=== PATIENT | female | born 1985 | race Caucasian/White ===

== ENCOUNTER 2018-01-05 08:49 | Emergency (ER) | payer OTHER ==
[2018-01-05 08:57] VITALS: BP 147/69
--- NOTE | 2018-01-05 09:32 | UC ---
UC General HPI - HPI Summary HPI Summary: This pt is a 32 y/o female presenting to [facility] c/o sore throat for the past 4 days. Pt additionally reports fatigue, headache, and white patches on the back of her throat. She has taken Advil with some relief. She states her sore throat has become better . Denies difficulty swallowing. Pt also notes decreased appetite, nausea, and left ear feeling clogged up. Denies vomiting, diarrhea, fever, abd pain. No hx of mono. Denies sick contacts. 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 Allergic to amoxicillin and penicillin. Denies possibility of . Patients medication reviewed this visit. - History of Current Complaint Chief Complaint: UCRespiratory Stated Complaint: SORE THROAT Time Seen by Provider: 01/05/18 09:18 Hx Obtained From: Patient Hx Last Menstrual Period: 3-4 wks ago Onset/Duration: Lasting Days, Still Present Timing: Constant Onset Severity: Moderate Current Severity: Mild Pain Intensity: 2 Pain Location at: throat Character: sore Aggravating: nothing Alleviating: Advil Associated Signs & Symptoms: Positive: Headache, Nausea, Other - POS: sore throat, decreased appetite, fatigue, left ear feeling clogged up. Negative: Abdominal Pain, Cough, Diarrhea, Fever, Vomiting - Allergy/Home Medications Allergies/Adverse Reactions: Allergies Allergy/AdvReac Type Severity Reaction Status Date / Time amoxicillin Allergy Hives Verified 01/05/18 08:58 Penicillins Allergy Hives Verified 01/05/18 08:58 PMH/Surg Hx/FS Hx/Imm Hx Previously Healthy: Yes Endocrine History: Thyroid Disease - Hypothyroid Other Cardiovascular History: DENIES: HTN - Surgical History Surgical History: Yes Surgery Procedure, Year, and Place: biopsy vulva x 2 (benign); wisdom teeth - Family History Known Family History: Positive: Respiratory Disease - Father: sleep apnea Negative: Hypertension, Diabetes Family History: Maternal grandmother: breast cancer - Social History 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 [employer] Alcohol Use: Occasionally Substance Use Type: None Smoking Status (MU): Never Smoked Tobacco - Immunization History Most Recent Tetanus Shot: 3 yrs ago Review of Systems Constitutional: Fatigue, Other - NEG: fever, chills Skin: Negative Eyes: Negative ENT: Sore Throat, Other - POS: left ear feeling clogged up Respiratory: Negative Cardiovascular: Negative Gastrointestinal: Nausea, Other - NEG: vomiting, diarrhea, abd pain Genitourinary: Negative Motor: Negative Neurovascular: Negative Musculoskeletal: Negative Neurological: Headache Psychological: Negative All Other Systems Reviewed And Are Negative: Yes Physical Exam - Summary Physical Exam Summary: Vital Signs Reviewed: Yes A+Ox3, no distress Eyes: Conjunctiva Clear, DEVANG. EOM intact and full ENT: Hearing grossly normal left TM serous fluid, no erythema, no buldge, mmoist, uvula midline, left tonsil with small ulcerative lesion, scant exudate. no erythema, uvula midline symmetric Neck: Positive: Supple Respiratory: Positive: No respiratory distress, No accessory muscle use + CTA throughout no w/r Cardiovascular: RRR nl s1, s2 no m/r CBT <2 sec abd soft + BS nt/nd no guarding, no distension Musculoskeletal Exam: CRUZ x 4 without difficulty Strength Intact, ROM Intact Neurological: Positive: Alert, + sensation throughout Psychological: Positive: Normal Response To Family Skin: Positive: no rash, no ecchymosis Triage Information Reviewed: Yes Vital Signs: Initial Vital Signs Temp 97.5 F 01/05/18 08:55 Pulse 104 01/05/18 08:55 Resp 18 01/05/18 08:55 BP 147/69 01/05/18 08:55 Pulse Ox 99 01/05/18 08:55 Course/Dx - Course Course Of Treatment: Blood pressure noted and patient informed to follow up with PCP. Patient presents with sore throat that has been improving. Patient noticed that she had an ulcerative lesion on her left tonsil when he checked. Patient states she is fatigued and has mild nausea. No history of mono. Vital signs stable with a blood pressure slightly elevated as noted. Patient well- appearing on exam with an ulcerative lesion left tonsil. Discussed with patient secretion precautions, Motrin/Tylenol, swish and spit warm salt water. Return precautions discussed. We'll check a mono as well. Patient given a note for work tomorrow. Patient comfortable in agreement with plan. Patient does have serous otitis on her left. Recommend take a decongestant. Patient comfortable agreement with plan - Differential Dx - Multi-Symptom Provider Diagnoses: serous otitis left. pharyngitis Discharge - Sign-Out/Discharge Documenting (check all that apply): Patient Departure - Discharge All imaging exams completed and their final reports reviewed: No Studies - Discharge Plan Condition: Stable Disposition: HOME Patient Education Materials: Pharyngitis (ED), Serous Otitis Media (ED) Forms: *Work Release Referrals: Jenna De Dios MD [Primary Care Provider] - Additional Instructions: - Stay well hydrated. Drink plenty of non-alcoholic, non-caffinated beverages. - Alternate ibuprofen (Advil, Motrin) 600mg and Tylenol every 3 hours for pain or fever. Take with food. Do NOT take for more than 4-5 days. - These infections are spread by secretions - do NOT share eating or drinking utensils - clean items you share with other people such as cell phones, computer mouse, TV remote, computer tablets,etc. Once you start to feel better, change your toothbrush and your pillowcase. - get plenty of restful sleep - okay to gargle, spit warm salt water 2-3 times a day - your blood was taken today to test for mono- this test takes several days to result. 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 - get plenty of restful sleep. - contact your doctor, return here, or go to the emergency department with questions or concerns - Billing Disposition and Condition Condition: STABLE Disposition: Home - Attestation Statements Document Initiated by Zafar: Yes Documenting Scribe: Paige Foreman Provider For Whom Zafar is Documenting (Include Credential): Stacy Watson MD Scribe Attestation: Paige Phoenix, scribed for Stacy Watson MD on 01/05/18 at 1012. Scribe Documentation Reviewed: Yes Provider Attestation: The documentation as recorded by the Paige comer accurately reflects the service I personally performed and the decisions made by me, Stacy Watson MD
== END 2018-01-05 10:07 | disposition home or self-care (01) ==
LOC: UCEAST 08:49
DX: H65.92 Unspecified nonsuppurative otitis media, left ear (principal); J02.9 Acute pharyngitis, unspecified; Z88.0 Allergy status to penicillin
CPT/HCPCS: 36415; 86308; 86664; 86665; 87651; 99211; G0463